=== PATIENT | female | born 1975 | race Caucasian/White ===

== ENCOUNTER → 2017-09-12 | Day surgery (SDC) | payer OTHER ==
[~2017-09-12] MED LIST: DHA; KETOROLAC TROMETHAMINE 30 MG/ML (IVP) VIAL IV PUSH ONE; MIDAZOLAM HCL 2 MG/2 ML VIAL ONE; ONDANSETRON HCL 4 MG/2 ML VIAL IV PUSH ONE; OXYC-360 PO; PREN0.01 PO; PROPOFOL 200 MG/20 ML AMP IV ONE; SODIUM CHLOR 0.9% 1000 ML BAG IV ONE; ceFAZolin 2 GM PREMIX 50 ML ONE
--- NOTE | 2017-09-12 08:23 | TN ---
cc: LILIANA HUERTAS M.D. DATE OF SURGERY September 12, 2017 PREOPERATIVE DIAGNOSIS Patient with chronic menorrhagia and dysmenorrhea. PROCEDURE 1. Examination under anesthesia. 2. Hysteroscopy. 3. Endometrial sampling. 4. NovaSure endometrial ablation. POSTOPERATIVE DIAGNOSIS Patient with chronic menorrhagia and dysmenorrhea. SURGEON MD Derek ANESTHESIA General with LMA. ESTIMATED BLOOD LOSS Less than 25 cc. OPERATIVE FINDINGS The patient's cavity measured 6.0 and 4.7 for the NovaSure. Energy generated 155 alcantara. Uterus is slightly retroverted but the cavity was symmetrical without any focal abnormality. No perforation occurred. The procedure was uncomplicated. ANTIBIOTICS The patient received Ancef 2 grams prophylactically. PROCEDURE DESCRIPTION The patient was taken to the operating room in stable condition, underwent general anesthesia with LMA placement. She was carefully positioned in dorsal lithotomy position using candy-cane stirrups in the lower extremities. She had sequentials placed for VTE prophylaxis. She was prepped and draped and a time-out was conducted and agreed on by all present in the room. Simple exam was conducted. Findings were consistent with preoperative diagnosis. No significant findings. The cervix was visualized by bivalve retractor. Single-tooth tenaculum was attached anteriorly and then a uterine sound was placed gently in a slightly retroverted fashion measuring about 9 cm in length. The cervix was dilated to accommodate a rigid 5-mm hysteroscope using normal saline as a distention media. Examination of the cavity was described above. After completion of the diagnostic hysteroscopy, a simple curettage of the cavity was performed to sample endometrium. The NovaSure device was then utilized, measurements were set and the energy source was connected. Complete electrodissection of the cavity was noted. After the generator was complete, the NovaSure device was removed from the uterine cavity and then inspection of the cavity was conducted using the hysteroscope again. Good result was noted. No active bleeding. The patient was stable. Tenaculum site was dry. At the completion of the case, final counts correct. The patient was stable and taken to the recovery room on room air. MD BREE Guevara/MALENA /7:54 AM /7:57 AM
== END | disposition home or self-care (01) ==
LOC: ESDC 06:28
PROVIDERS: ATTEND Obstetrics & Gynecology
DX: N92.0 Excessive and frequent menstruation with regular cycle (principal); N94.6 Dysmenorrhea, unspecified
CPT/HCPCS: 00952; 58563; 88305; J0690; J1885; J2250; J2405; J3010; J7030